=== PATIENT | female | born 1935 | race American Indian/Alaskan Native ===

== ENCOUNTER 2018-04-23 19:33 | Observation (INO) | payer MEDICARE, OTHER ==
[2018-04-23 21:16] LABS: BASO # 0.03 K/mm3 (0.0-2.0); BASO % 0.5 % (0.0-3.0); EOS # 0.6 (0.0-0.7); EOS % 10.5 % (1.5-5.0); GRAN # 2.25 (1.4-6.5); GRAN % 40.8 % (50.0-68.0); HEMOGLOBIN 9.8 g/dL (12.0-16.0); LYMPH # 2.2 (1.2-3.4); LYMPH % 39.9 % (22.0-35.0); MEAN CELL VOLUME 88.8 fl (80.0-105.0); MEAN CORPUSCULAR HEMOGLOBIN 28.9 pg (25.0-35.0); MEAN CORPUSCULAR HGB CONC 32.6 g/dl (31.0-37.0); MEAN PLATELET VOLUME 9.8 fl (7.0-11.0); MONO # 0.5 (0.1-0.6); MONO % 8.3 % (1.0-6.0); RBC 3.39 10^6/uL (3.5-6.1); RED CELL DISTRIBUTION WIDTH 13.8 % (11.5-14.5); WHITE BLOOD COUNT 5.5 10^3/ul (4.5-11.0)
[2018-04-23 21:26] LABS: ALB/GLOB RATIO 1.1 (1.1-1.8); ALBUMIN 3.8 g/dL (3.0-4.8); ALT/SGPT 15 U/L (7-56); AST/SGOT 19 U/L (14-36); BLOOD UREA NITROGEN 19 mg/dL (7-21); CALCIUM 9.5 mg/dL (8.4-10.5); GFR AFRICAN-AMERICAN > 60; GFR NON-AFRICAN AMERICAN > 60; HDL CHOLESTEROL 54 mg/dL (29-60)
[2018-04-23 21:37] LABS: LDL CHOLESTEROL 61 mg/dL (0-129)
[2018-04-23 21:38] LABS: INR 1.12 (0.93-1.08); PARTIAL THROMBOPLASTIN TIME 24.8 Seconds (25.1-36.5); PROTHROMBIN TIME 12.8 SECONDS (9.4-12.5)
[2018-04-23 21:39] LABS: TROPONIN I < 0.01 ng/mL
--- NOTE | 2018-04-23 22:05 | ED PDOC ---
Arrival/HPI - General Chief Complaint: Trauma Time Seen by Provider: 04/23/18 20:01 Historian: Patient - History of Present Illness Narrative History of Present Illness (Text): 04/23/18 20:30 Derick Austin is an 82 year old female, whose past medical history includes hypertension, dementia, CVA with residual left-sided weakness, and degenerative joint disease, who presents to the Emergency department brought in by EMS for frequent falls since yesterday and worsening confusion. Limited HPI and ROS secondary to patient's dementia. PMD: Dr. Banks Symptom Onset: Gradual Symptom Course: Unchanged Activities at Onset: Light Context: Home Past Medical History - Provider Review Nursing Documentation Reviewed: Yes - Infectious Disease Hx of Infectious Diseases: None - Cardiac Hx Cardiac Disorders: Yes Hx Hypertension: Yes - Pulmonary Hx Respiratory Disorders: No - Neurological Hx Neurological Disorder: Yes Hx Dementia: Yes - HEENT Hx HEENT Disorder: No - Renal Hx Renal Disorder: No - Endocrine/Metabolic Hx Endocrine Disorders: No - Hematological/Oncological Hx Blood Disorders: No - Integumentary Hx Dermatological Disorder: No - Musculoskeletal/Rheumatological Hx Musculoskeletal Disorders: Yes Hx Arthritis: Yes - Gastrointestinal Hx Gastrointestinal Disorders: Yes Hx Gall Bladder Disease: Yes - Genitourinary/Gynecological Hx Genitourinary Disorders: No - Psychiatric Hx Psychophysiologic Disorder: No Hx Substance Use: No - Surgical History Hx Orthopedic Surgery: Yes (L Hip Replacement) Other/Comment: left hip surgery. - Anesthesia Hx Anesthesia: Yes Hx Anesthesia Reactions: No Hx Malignant Hyperthermia: No - Suicidal Assessment Feels Threatened In Home Enviroment: No Family/Social History - Physician Review Nursing Documentation Reviewed: Yes Family/Social History: Unknown Family HX Smoking Status: Never Smoked Hx Alcohol Use: No Hx Substance Use: No Allergies/Home Meds Allergies/Adverse Reactions: Allergies No Known Allergies Allergy (Verified 04/23/18 20:01) Home Medications: Home Meds Medication Instructions Recorded Confirmed Donepezil 10 mg PO DAILY 12/08/16 04/23/18 Meloxicam 15 mg PO DAILY 12/08/16 04/23/18 Tylenol/Codeine 300 MG/30 MG 300 mg PO BID 12/08/16 04/23/18 Review of Systems - Review of Systems Systems not reviewed;Unavailable: Dementia Neurological: Other (+frequent falls, +confusion) Physical Exam Vital Signs Reviewed: Yes Vital Signs Temp Pulse Resp BP Pulse Ox 04/24/18 02:34 62 12 168/94 H 98 04/24/18 01:20 206/107 H 04/23/18 23:54 55 L 18 181/96 H 100 04/23/18 21:03 54 L 16 147/96 H 99 04/23/18 20:03 97.8 F 62 20 153/84 H 100 Temperature: Afebrile Blood Pressure: Hypertensive Pulse: Regular Respiratory Rate: Normal Appearance: Positive for: Non-Toxic Mental Status: Positive for: Confused Finger Stick Blood Glucose: 71 - Systems Exam Head: Present: Atraumatic, Normocephalic Pupils: Present: PERRL Extroacular Muscles: Present: EOMI Conjunctiva: Present: Normal Mouth: Present: Moist Mucous Membranes Neck: Present: Normal Range of Motion Respiratory/Chest: Present: Clear to Auscultation, Good Air Exchange. No: Respiratory Distress, Accessory Muscle Use Cardiovascular: Present: Regular Rate and Rhythm, Normal S1, S2. No: Murmurs Abdomen: No: Tenderness, Distention, Peritoneal Signs Upper Extremity: No: Cyanosis, Edema Lower Extremity: Present: Other (Bilateral lower extremity weakness). No: Edema Neurological: Present: Motor Func Grossly Intact, Other (Right-sided nasal/ labial flattening) Skin: Present: Warm, Dry, Normal Color. No: Rashes Medical Decision Making ED Course and Treatment: 04/23/18 20:30 Impression: 82 year old female brought in for frequent falls and worsening confusion. Plan: -- CT Head w/o contrast -- EKG -- Chest X-Ray -- Labs, troponin, lipid panel -- Reassess and disposition Prior Visits: Notes and results from previous visits were reviewed. On 12/08/2016, pt was seen in the Emergency department for increased weakness, decreased appetite, and fatigue. Pt was admitted to the hospital for furthe evaluation. Progress Notes: Reviewed EKG, sinus bradycardia at 53 bpm. LVH. Non-specific ST/T wave changes. 04/23/18 22:[address] Lea, who is aware and agrees with plan. Accepts pt in to her service. 04/13/18 22:15 Reviewed radiology, CT Head shows: Brain: See below. Ventricles: There is moderate ventriculomegaly and cortical sulci widening consistent with generalized atrophy. There are areas of diminished density in the periventricular white matter bilaterally consistent with chronic small vessel ischemic changes. Albarran-white matter differentiation is intact and unremarkable. No evidence of acute intracranial bleed. Bones/joints: Unremarkable. No acute fracture. Soft tissues: Unremarkable. Sinuses: Unremarkable as visualized. No acute sinusitis. Mastoid air cells: Unremarkable as visualized. No mastoid effusion. IMPRESSION: Generalized atrophy and chronic small vessel ischemic changes. 04/24/18 00:53 Reviewed radiology, Chest X-ray shows no acute processes. XR Pelvis shows no acute processes/no acute fracture. 04/24/18 00:[address] scan findings with pt with Dr. Lea. Pt will go to Telemetry observation for altered mental status under her service. - Lab Interpretations Lab Results: 04/23/18 21:00 04/23/18 21:00 Lab Results 04/23/18 21:18: PT 12.8 H, INR 1.12 H, APTT 24.8 L 04/23/18 21:00: Hemoglobin A1c 5.1 04/23/18 21:00: Sodium 144, Potassium 4.3, Chloride 106, Carbon Dioxide 27, Anion Gap 15, BUN 19, Creatinine 0.9, Est GFR ( Amer) > 60, Est GFR (Non- Af Amer) > 60, Random Glucose 92, Calcium 9.5, Total Bilirubin 0.8, AST 19, ALT 15, Alkaline Phosphatase 70, Troponin I < 0.01, Total Protein 7.2, Albumin 3.8, Globulin 3.4, Albumin/Globulin Ratio 1.1, Triglycerides 60, Cholesterol 138, LDL Cholesterol Direct 61, HDL Cholesterol 54 04/23/18 21:00: WBC 5.5, RBC 3.39 L, Hgb 9.8 L, Hct 30.1 L, MCV 88.8, MCH 28.9, MCHC 32.6, RDW 13.8, Plt Count 255, MPV 9.8, Gran % 40.8 L, Lymph % (Auto) 39.9 H, [place] % (Auto) 8.3 H, Eos % (Auto) 10.5 H, Baso % (Auto) 0.5, Gran # 2.25, Lymph # (Auto) 2.2, [place] # (Auto) 0.5, Eos # (Auto) 0.6, Baso # (Auto) 0.03 04/23/18 20:46: POC Glucose (mg/dL) 71 I have reviewed the lab results: Yes - RAD Interpretation Radiology Orders: 04/23/18 20:32 CHEST PORTABLE [RAD] Stat 04/23/18 20:38 HEAD W/O CONTRAST [CT] Stat 04/23/18 23:01 PELVIS W/OBLIQUES (3VWS) [RAD] Stat Offender Employment Specialist: ED Physician, Radiologist - EKG Interpretation Interpreted by ED Physician: Yes Type: 12 lead EKG - Medication Orders Current Medication Orders: Acetaminophen (Tylenol 325mg Tab) 650 mg PO Q6H PRN PRN Reason: Fever >100.4 F Donepezil HCl (Aricept) 5 mg PO HS CASSIDY Meloxicam (Mobic) 15 mg PO DAILY CASSIDY Last Admin: 04/24/18 11:53 Dose: 15 mg Tramadol/Acetaminophen (Ultracet 37.5/325 Mg) 1 tab PO Q6H PRN PRN Reason: Pain, moderate (4-7) Discontinued Medications Acetaminophen (Tylenol 325mg Tab) 650 mg PO STAT STA Stop: 04/24/18 01:06 Last Admin: 04/24/18 01:15 Dose: Hydralazine HCl (Apresoline) 10 mg IVP ONCE ONE Stop: 04/24/18 01:07 Last Admin: 04/24/18 01:20 Dose: 10 mg IVP Administration Document 04/24/18 01:20 CNR (Rec: 04/24/18 01:20 CNR [id number]) Charges for Administration # of IVP Administrations 1 JAN Pulse and Blood Pressure Document 04/24/18 01:20 CNR (Rec: 04/24/18 01:20 CNR [id number]) Blood Pressure Blood Pressure (100/60-150/90) 206/107 Ketorolac Tromethamine (Toradol) 15 mg IVP STAT STA Stop: 04/24/18 01:09 Last Admin: 04/24/18 01:20 Dose: 15 mg MAR Pain Assessment Document 04/24/18 01:20 CNR (Rec: 04/24/18 01:20 CNR [id number]) Pain Reassessment Is this a pain reassessment? No IVP Administration Document 04/24/18 01:20 CNR (Rec: 04/24/18 01:20 CNR [id number]) Charges for Administration # of IVP Administrations 1 NIHSS Scale (Rumely) Time Performed: 20:30 - How Severe is the Stoke Baseline Level of Consciousness: 0=Alert LOC to Questions: 0=Both comments correct LOC to commands: 0=Obeys both correctly Best Gaze: 0=Normal Visual: 0=No visual loss Facial: 1=Minor asymmetry Motor Arm - Left: 1=Drift noted before 10 sec Motor Arm - Right: 0=No drift Motor Leg - Left: 2=Falls before 5 sec Motor Leg - Right: 2=Falls before 5 sec Limb Ataxia: 0=Absent Sensory: 0=Normal Best Language: 0=No aphasia Dysarthia: 0=Normal articulation Extinction & Inattention (Neglect): 0=Normal, no object Score: 6 Risk Level: Mod Stroke Risk rTPA Inclusion/Exclusion - Refusal of Treatment Patient Refused Treatment: No - Inclusion Criteria for Altepase Patient is 18 years or Older: Yes The Clinical Diagnosis of Ischemic Stroke That is Causing a Potentially Disabling Neurological Deficit: No Time of Onset is Well Established to be Less Than 270 Minute Before Treatment Would Begin: No Risk/Benefit Discussed With Patient/Family Member Present: Yes - Exclusion Criteria for Altepase Uncontrolled Hypertension at Time of Treatment (Systolic BP above 185 or Diastolic BP above 110 mmHg): No - Warning to TPA With Conditions Condition: Stroke Serevity Too Mild - Scribe Statement The provider has reviewed the documentation as recorded by the Scribhalie Barrow Provider Scribe Attestation: All medical record entries made by the Scribe were at my direction and personally dictated by me. I have reviewed the chart and agree that the record accurately reflects my personal performance of the history, physical exam, medical decision making, and the department course for this patient. I have also personally directed, reviewed, and agree with the discharge instructions and disposition. Disposition/Present on Arrival - Present on Arrival Any Indicators Present on Arrival: No History of DVT/PE: Yes History of Uncontrolled Diabetes: No Urinary Catheter: Yes History of Decub. Ulcer: No History Surgical Site Infection Following: None - Disposition Have Diagnosis and Disposition been Completed?: Yes Diagnosis: Mental status change Disposition: HOSPITALIZED Disposition Time: 01:00 Condition: FAIR
--- NOTE | 2018-04-24 08:51 | CT ---
PROCEDURE: CT HEAD WITHOUT CONTRAST. HISTORY: weakness COMPARISON: None available. TECHNIQUE: Axial computed tomography images were obtained through the head/brain without intravenous contrast. Radiation dose: Total exam DLP = mGy-cm. This CT exam was performed using one or more of the following dose reduction techniques: Automated exposure control, adjustment of the mA and/or kV according to patient size, and/or use of iterative reconstruction technique. FINDINGS: HEMORRHAGE: No intracranial hemorrhage. BRAIN: No mass effect or edema. Hydrocephalus and chronic white matter disease.. VENTRICLES: Hydrocephalus and chronic white matter disease.. CALVARIUM: Unremarkable. PARANASAL SINUSES: Unremarkable as visualized. No significant inflammatory changes. MASTOID AIR CELLS: Unremarkable as visualized. No inflammatory changes. OTHER FINDINGS: None. IMPRESSION: No bleed.
--- NOTE | 2018-04-24 09:23 | RAD ---
HISTORY: Code Stroke COMPARISON: 08/10/2016 FINDINGS: LUNGS: No active pulmonary disease. PLEURA: No significant pleural effusion identified, no pneumothorax apparent. CARDIOVASCULAR: Mild cardiomegaly OSSEOUS STRUCTURES: No significant abnormalities. VISUALIZED UPPER ABDOMEN: Normal. OTHER FINDINGS: None. IMPRESSION: No active disease.
--- NOTE | 2018-04-24 09:36 | CARD ---
APPROVED REPORT EKG Measurement Heart [id number] MD [id number]-8 [id number] <Conclusion> Sinus bradycardia Minimal voltage criteria for LVH, may be normal variant Borderline ECG
--- NOTE | 2018-04-24 10:28 | RAD ---
PROCEDURE: Pelvis three views HISTORY: fall COMPARISON: TECHNIQUE: Three views of the pelvis were obtained. FINDINGS: There is a left hip prosthesis. There is no dislocation or loosening. Severe degenerative changes are seen in the right hip with joint space narrowing as well as bony sclerosis and osteophyte formation IMPRESSION: No acute fracture
[2018-04-24] MEDS ORDERED: TraMADol/Apap 37.5/325 mg Tab PO PRN (17:48)
--- NOTE | 2018-04-25 04:06 | HP ---
HISTORY OF PRESENT ILLNESS: Patient is 82 years old, unable to give history. She is not able to give history because of her advanced dementia. Her granddaughter who is by the bedside states that she has fallen off bed a few times when she tried to get up, although she has been bed bound for almost 2 to 3 years. Granddaughter states she has no help because she has to work and nobody watches her in between and she has been increasingly weak and increasingly demented. According to her, she has been eating well. No history of nausea or vomiting. She has increasing generalized weakness and increasing forgetfulness. PAST MEDICAL HISTORY: Significant for hypertension and dementia, generalized osteoarthritis. ALLERGIES: SHE IS NOT ALLERGIC TO ANY MEDICATIONS. MEDICATIONS AT HOME: She is on Mobic 15 mg daily. She is on Ultracet. She is on Aricept 10 mg daily. SOCIAL HISTORY: She lives with her son and really granddaughter takes care of her. No history of smoking, drinking, or alcohol use. REVIEW OF SYSTEMS: Awake and alert, but confused, disoriented, not communicative, cannot carry conversation with her. PHYSICAL EXAMINATION: VITAL SIGNS: She is afebrile, pulse 50, respirations 18, blood pressure 158/93. LUNGS: Bilateral fair airflow. No rhonchi or crackle. HEART: S1 and S2 audible. ABDOMEN: Soft. Nontender. No rebound. No guarding. NEUROLOGICAL: She is awake and alert, but confused, disoriented, not communicative. She has generalized weakness. She has bilateral knee deformity secondary to arthritis. LABORATORY EXAM: WBC is 5.5, hemoglobin 9.8, hematocrit 30.1, platelet 255. PT 12.8, INR 1.12. Chemistry: Sodium 144, potassium 4.3, chloride 106, CO2 of 27, BUN 19, creatinine 0.9. Blood sugar of 92. LFTs are within normal limits. CT scan of the brain was done negative. X-ray of the pelvis is unremarkable. ASSESSMENT: 1. Status post multiple falls. 2. Profound dementia. 3. Chronic anemia. 4. Generalized osteoarthritis. PLAN: We will try to assess from physical therapy point of view. She might need longterm placement because she is at high risk and does not have full support. Patient needs 24-hour care and supervision. We will get doctors, social service, and make disposition plan. Rosey Lea MD [facility] # [id number]
[2018-04-26 05:58] VITALS: RESP 20; O2SAT 98
--- NOTE | 2018-04-26 10:23 | DS ---
HISTORY OF PRESENT ILLNESS: Patient is 82-year-old, seems to be confused, disoriented, answers simple questions, agitated and distressed, was evaluated by physical therapy, recommended subacute rehab. According to patient's granddaughter, she has never walked for last 2 years. PHYSICAL EXAMINATION: GENERAL: She is awake and alert, not very communicative. VITAL SIGNS: She is afebrile, pulse 63, respirations 18, blood pressure 156/75. LUNGS: Bilateral fair airflow. No rhonchi or crackle. HEART: S1 and S2 audible. ABDOMEN: Soft, nontender. No rebound, no guarding. NEUROLOGICAL: She is awake and alert, unable to carry on conversation. EXTREMITIES: Bilateral legs, no edema. LABORATORY DATA: Blood sugar is 71. ASSESSMENT AND PLAN: 1. Recurrent fall because of unstable gait. 2. Hypertension. 3. Severe dementia. 4. Deconditioning and difficulty walking. PLAN: We will continue patient on current medication. She is on Mobic. She is on Aricept. We will give her a dose of Norvasc, and patient needs subacute rehab, but since patient did not walk for last 2 years, she might not be a candidate for subacute rehab. She is basically bed-bound and wheelchair-bound. Spoke to social workers; they are making arrangement for possible subacute rehab; if she is accepted, she will be discharged to subacute rehab; otherwise, she will be discharged home. Rosey Lea MD
[2018-04-26 11:50] VITALS: BP 138/78; PULSE 60; TEMP 99.4
--- NOTE | 2018-04-26 13:03 | DS ---
HISTORY OF PRESENT ILLNESS: The patient is 82 years old, who was admitted because of altered mental status. According to granddaughter, she has not walked for almost 2 years. She fell a couple of times from the bed and she was trying to get out of bed. However, no fever, no chills. No nausea, vomiting. No diarrhea. Eating and tolerating. PHYSICAL EXAMINATION: VITAL SIGNS: She is afebrile, pulse , respirations 20, blood pressure 138/78. LUNGS: Bilateral good airflow. No rhonchi or crackle. HEART: S1 and S2 audible. ABDOMEN: Soft. Nontender. No rebound. No guarding. NEUROLOGICAL: The patient is awake and alert, confused, disoriented. ASSESSMENT: 1. Altered mental status, seems to be back to her baseline. 2. Hypertension. 3. Dementia. 4. Deconditioning and difficulty walking. PLAN: The patient is being discharged to [facility]. We will resume her medication. Continue on current medication. Once she is discharged from there, she will be followed up by her PMD. Rosey Lea MD
== END 2018-04-26 19:33 | disposition home or self-care (01) ==
LOC: ED 19:33 → ERH 04-24 01:16 → 2RSO 04-24 03:55
PROVIDERS: ADMIT Internal Medicine; ATTEND Internal Medicine
DX: R41.82 Altered mental status, unspecified (principal); F03.90 Unspecified dementia, unspecified severity, without behavioral disturbance, psychotic disturbance, mood disturbance, and anxiety; I10 Essential (primary) hypertension; R26.2 Difficulty in walking, not elsewhere classified; M15.9 Polyosteoarthritis, unspecified; D64.9 Anemia, unspecified; I69.354 Hemiplegia and hemiparesis following cerebral infarction affecting left non-dominant side; R29.6 Repeated falls; Z96.642 Presence of left artificial hip joint; Z99.3 Dependence on wheelchair
CPT/HCPCS: 70450; 71045; 72190; 80053; 80061; 82948; 83036; 84484; 85025; 85610; 85730; 92610; 93005; 96374; 96375; 97161; 97530; 99285; G0378; G8978; G8979; G8996; G8997; G8998; J0360; J1885

== ENCOUNTER 2018-07-12 21:03 | Inpatient (IN) | payer MEDICARE, OTHER ==
[2018-07-12] MEDS ORDERED: Sodium Chloride 0.9% 500 ML IV STA (21:45)
--- NOTE | 2018-07-12 21:55 | ED PDOC ---
Arrival/HPI - General Chief Complaint: GI Problem Time Seen by Provider: 07/12/18 21:13 Historian: Patient - History of Present Illness Narrative History of Present Illness (Text): 07/12/18 21:58 82-year-old female with past medical history of rheumatoid arthritis and dementia, presents with her tile professional who is her granddaughter, for a day history of nonbloody diarrhea and bedsore to her buttock area which has been present for the past 2 weeks but the granddaughter noticed is worse today prompting ER visit. As per granddaughter she is the primary tile professional for the patient, the patient lives with her for the past 7 years, she states that the patient was diagnosed with dementia approximately 3 years ago and since then her mental and health status has declined. Patient cries intermittently without any triggers, she forgets to swallow when being fed and is mostly eating puree food now, she has limited ability to socially interact and answer questions appropriately. Patient is primarily bedbound, at times when she is able to she lifts the patient to wheelchair. Otherwise denies any fever, chills, vomiting, recent antibiotic use, cough, difficulty breathing, decrease in appetite, weakness. As per granddaughter, the patient is not complaining of any other pain aside from her chronic joint pain due to RA. PMD Juli Leo Past Medical History - Infectious Disease Hx of Infectious Diseases: None - Reproductive Menopause: Yes - Cardiac Hx Cardiac Disorders: Yes Hx Hypertension: Yes - Pulmonary Hx Respiratory Disorders: No - Neurological Hx Neurological Disorder: Yes Hx Dementia: Yes - HEENT Hx HEENT Disorder: No - Renal Hx Renal Disorder: No - Endocrine/Metabolic Hx Endocrine Disorders: No - Hematological/Oncological Hx Blood Disorders: No - Integumentary Hx Dermatological Disorder: No - Musculoskeletal/Rheumatological Hx Musculoskeletal Disorders: Yes Hx Arthritis: Yes - Gastrointestinal Hx Gastrointestinal Disorders: Yes Hx Gall Bladder Disease: Yes - Genitourinary/Gynecological Hx Genitourinary Disorders: No - Psychiatric Hx Psychophysiologic Disorder: No Hx Substance Use: No - Surgical History Hx Orthopedic Surgery: Yes (L Hip Replacement) Other/Comment: left hip surgery. - Anesthesia Hx Anesthesia: Yes Hx Anesthesia Reactions: No Hx Malignant Hyperthermia: No - Suicidal Assessment Feels Threatened In Home Enviroment: No Family/Social History Family/Social History: No Known Family HX Smoking Status: Never Smoked Hx Alcohol Use: No Hx Substance Use: No Allergies/Home Meds Allergies/Adverse Reactions: Allergies No Known Allergies Allergy (Verified 04/23/18 20:01) Home Medications: Home Meds Medication Instructions Recorded Confirmed Acetaminophen/Codeine 1 tab PO QID PRN 07/13/18 07/13/18 [Tylenol/Codeine 300 MG/30 MG] Atorvastatin [Lipitor] 10 mg PO HS 07/13/18 07/13/18 Meloxicam [Mobic] 15 mg PO DAILY 07/13/18 07/13/18 Review of Systems - Review of Systems Constitutional: Fatigue. absent: Fevers Respiratory: absent: Cough, Sputum Cardiovascular: absent: Edema Gastrointestinal: Diarrhea. absent: Vomiting Musculoskeletal: Arthralgias. absent: Joint Swelling Skin: Skin Lesions. absent: Rash Neurological: absent: Focal Weakness Physical Exam Vital Signs Temp Pulse Resp BP Pulse Ox 07/13/18 01:18 65 18 144/79 99 07/12/18 21:28 98.7 F 60 18 143/76 96 Temperature: Afebrile Blood Pressure: Normal Pulse: Regular Respiratory Rate: Normal Appearance: Positive for: Well-Appearing, Non-Toxic, Comfortable Pain Distress: None Mental Status: Positive for: Alert and Oriented X 3 - Systems Exam Head: Present: Atraumatic, Normocephalic Pupils: Present: PERRL Extroacular Muscles: Present: EOMI Conjunctiva: Present: Normal Mouth: Present: Dry Neck: Present: Normal Range of Motion. No: MIDLINE TENDERNESS Respiratory/Chest: Present: Clear to Auscultation, Good Air Exchange. No: Respiratory Distress, Accessory Muscle Use, Wheezes, Rales, Rhonchi, Tachypneic Cardiovascular: Present: Regular Rate and Rhythm, Normal S1, S2. No: Murmurs, Tachycardic Abdomen: No: Tenderness, Distention, Peritoneal Signs Back: Present: Normal Inspection Upper Extremity: Present: Normal Inspection, NORMAL PULSES. No: Cyanosis, Edema Lower Extremity: Present: Normal Inspection, NORMAL PULSES. No: Edema Neurological: Present: GCS=15, CN II-XII Intact, Speech Normal Skin: Present: Warm, Dry, Normal Color, Other (4 cm stage 3 decubitus ulcer to the sacrum without surrounding erythema, edema, discharge; +3-4 small (measuring ~2cm each) swallow ulcers to the buttock without erythema, edema, discharge). No: Rashes Psychiatric: Present: Alert, Other (oriented to self only) Medical Decision Making ED Course and Treatment: 07/12/18 21:51 Plan : -- Labs -- IV fluids -- Urinalysis -- EKG -- CXR -- Reassess and disposition -- Wound culture -- Stool C. difficile, occult blood, culture and fecal leukocytes EKG: NSR at 66 bpm, (-) acute ST changes, as read by PAYTON. CXR : NAD, as read by PA Labs reviewed wbc 7, hemoglobin 9 which is stable compared to prior blood work since [address] Lea, agrees with plan for admission and AM consult with manager social responsibility and Gen. surgery for decubitus ulcer. Diagnostic results discussed with the granddaughter she agrees with plan for admission. - Lab Interpretations Microbiology Results: Microbiology Results 07/13/18 00:30 Buttock Gram Stain - Final 07/13/18 00:30 Stool C. difficile Antigen & Toxin A,B (M - Final Lab Results: 07/12/18 23:00 07/12/18 23:00 Lab Results 07/13/18 00:30: Stool Leukocytes, Qual Negative 07/12/18 23:00: Sodium 142, Potassium 4.1, Chloride 106, Carbon Dioxide 28, Anion Gap 13, BUN 24 H, Creatinine 0.7, Est GFR ( Amer) > 60, Est GFR ( Non-Af Amer) > 60, Random Glucose 93, Calcium 9.3, Magnesium 2.3 H, Total Bilirubin 1.0, AST 46 H D, ALT 17, Alkaline Phosphatase 77, Total Protein 7.6, Albumin 3.6, Globulin 4.0, Albumin/Globulin Ratio 0.9 L, Lipase 103 07/12/18 23:00: WBC 7.4 D, RBC 3.30 L, Hgb 9.0 L, Hct 28.8 L, MCV 87.3, MCH 27.3, MCHC 31.3, RDW 13.8, Plt Count 340, MPV 10.0, Gran % 72.9 H, Lymph % (Auto ) 19.2 L, Wilcox % (Auto) 4.9, Eos % (Auto) 2.7, Baso % (Auto) 0.3, Gran # 5.41, Lymph # (Auto) 1.4, Wilcox # (Auto) 0.4, Eos # (Auto) 0.2, Baso # (Auto) 0.02 07/12/18 15:59: Urine Color Yellow, Urine Appearance Clear, Urine pH 6.0, Ur Specific [place] 1.025, Urine Protein 30 H, Urine Glucose (UA) Negative, Urine Ketones Negative, Urine Blood Trace-intact H, Urine Nitrate Positive H, Urine Bilirubin Negative, Urine Urobilinogen 1.0 H, Ur Leukocyte Esterase Small H, Urine RBC 0 - 2, Urine WBC 2 - 5, Ur Epithelial Cells 1 - 3, Urine Bacteria Many - RAD Interpretation Radiology Orders: 07/12/18 21:49 CHEST PORTABLE [RAD] Stat - Medication Orders Current Medication Orders: Atorvastatin Calcium (Lipitor) 10 mg PO HS CASSIDY Ceftriaxone Sodium (Rocephin 1 Gram Ivpb) 1 gm in 100 mls @ 100 mls/hr IVPB DAILY CASSIDY PRN Reason: Protocol Meloxicam (Mobic) 15 mg PO DAILY CASSIDY Last Admin: 07/13/18 13:20 Dose: 15 mg Oxycodone/Acetaminophen (Percocet 5/325 Mg Tab) 1 tab PO Q6H PRN PRN Reason: Pain, moderate (4-7) Stop: 07/16/18 08:43 Last Admin: 07/13/18 08:59 Dose: 1 tab MAR Pain Assessment Document 07/13/18 08:59 DL (Rec: 07/13/18 08:59 DL [id number]) Pain Reassessment Is this a pain reassessment? No Presence of Pain Presence of Pain Yes Location Pain Location Body Site Generalized Discontinued Medications Sodium Chloride (Sodium Chloride 0.9%) 500 mls @ 500 mls/hr IV .Q1H STA Stop: 07/12/18 22:44 Last Admin: 07/12/18 22:42 Dose: 500 mls/hr eMAR Start Stop Document 07/12/18 22:42 RD (Rec: 07/12/18 22:42 RD [id number]) Intravenous Solution Start Date 07/12/18 Start Time 22:42 End Date 07/12/18 End time 23:42 Total Infusion Time 60 Ceftriaxone Sodium (Rocephin 1 Gram Ivpb) 1 gm in 100 mls @ 100 mls/hr IVPB STAT STA PRN Reason: Protocol Stop: 07/13/18 18:09 Last Admin: 07/13/18 17:31 Dose: 100 mls/hr eMAR Start Stop Document 07/13/18 17:31 DL (Rec: 07/13/18 17:31 DL [id number]) Intravenous Solution Start Date 07/13/18 Start Time 17:31 - PA / RESIDENTIAL SALES EXECUTIVE / Resident Statement / has reviewed & agrees with the documentation as recorded. Disposition/Present on Arrival - Present on Arrival Any Indicators Present on Arrival: Yes History of DVT/PE: Yes History of Uncontrolled Diabetes: No Urinary Catheter: Yes History of Decub. Ulcer: No History Surgical Site Infection Following: None - Disposition Have Diagnosis and Disposition been Completed?: Yes Diagnosis: Diarrhea, Sacral decubitus ulcer Disposition: HOSPITALIZED Disposition Time: 00:30 Patient Plan: Admission Patient Problems: Current Active Problems Problem Status Onset Diarrhea Acute Sacral decubitus ulcer Acute Condition: STABLE
[2018-07-12 23:27] LABS: BASO # 0.02 K/mm3 (0.0-2.0); BASO % 0.3 % (0.0-3.0); EOS # 0.2 (0.0-0.7); EOS % 2.7 % (1.5-5.0); GRAN # 5.41 (1.4-6.5); GRAN % 72.9 % (50.0-68.0); LYMPH # 1.4 (1.2-3.4); LYMPH % 19.2 % (22.0-35.0); MEAN CELL VOLUME 87.3 fl (80.0-105.0); MEAN CORPUSCULAR HEMOGLOBIN 27.3 pg (25.0-35.0); MEAN CORPUSCULAR HGB CONC 31.3 g/dl (31.0-37.0); MONO # 0.4 (0.1-0.6); MONO % 4.9 % (1.0-6.0); RBC 3.3 10^6/uL (3.5-6.1); RED CELL DISTRIBUTION WIDTH 13.8 % (11.5-14.5); WHITE BLOOD COUNT 7.4 10^3/ul (4.5-11.0)
[2018-07-12 23:28] LABS: ALB/GLOB RATIO 0.9 (1.1-1.8); ALBUMIN 3.6 g/dL (3.0-4.8); ALT/SGPT 17 U/L (7-56); AST/SGOT 46 U/L (14-36); BLOOD UREA NITROGEN 24 mg/dL (7-21); CALCIUM 9.3 mg/dL (8.4-10.5); GFR NON-AFRICAN AMERICAN > 60; LIPASE 103 U/L (23-300)
--- NOTE | 2018-07-13 02:36 | CP.PCM.CON ---
<Alena Zuñiga - Last Filed: 07/13/18 08:58> History of Present Illness - History of Present Illness History of Present Illness: General Surgery Dr. Smith Pt demented, poor historian. History taken from EMR. 82 y/o F w/ PMHx of HTN, dementia, DVT/PE was BIBA from home for diarrhea and wounds to b/l buttock. Grand-daughter serves and assistant professor of archaeology. Per grand-daughter, pt has had NBNB diarrhea x1day and bedsore to pt buttock x2wks but worsened [employer] , prompting ER visit. denies fever, chills, vomiting, recent antibiotic use. As per granddaughter, the pt is not complaining of any other pain aside from her chronic joint pain due to RA. Surgery consulted for evaluation of decubitus ulcers. PMHx: see above, RA, GERD, cholelithiasis Meds: reviewed in chart NKDA PSHx: L THR, CAT; incisional hernia repair SHx: denies tobacco, EtOH, drug use FHx: noncontributory Review of Systems - Review of Systems Systems not reviewed;Unavailable: Dementia Past Patient History - Infectious Disease Hx of Infectious Diseases: None - Past Medical History & Family History Past Medical History?: Yes - Past Social History Smoking Status: Never Smoked - CARDIAC Hx Cardiac Disorders: Yes Hx Hypertension: Yes - PULMONARY Hx Respiratory Disorders: No - NEUROLOGICAL Hx Neurological Disorder: Yes Hx Dementia: Yes - HEENT Hx HEENT Problems: No - RENAL Hx Chronic Kidney Disease: No - ENDOCRINE/METABOLIC Hx Endocrine Disorders: No - HEMATOLOGICAL/ONCOLOGICAL Hx Blood Disorders: No - INTEGUMENTARY Hx Dermatological Problems: No - MUSCULOSKELETAL/RHEUMATOLOGICAL Hx Musculoskeletal Disorders: Yes Hx Arthritis: Yes - GASTROINTESTINAL Hx Gastrointestinal Disorders: Yes Hx Gall Bladder Disease: Yes - GENITOURINARY/GYNECOLOGICAL Hx Genitourinary Disorders: No - PSYCHIATRIC Hx Psychophysiologic Disorder: No Hx Substance Use: No - SURGICAL HISTORY Hx Orthopedic Surgery: Yes (L Hip Replacement) Other/Comment: left hip surgery. - ANESTHESIA Hx Anesthesia: Yes Hx Anesthesia Reactions: No Hx Malignant Hyperthermia: No Meds Allergies/Adverse Reactions: Allergies Allergy/AdvReac Type Severity Reaction Status Date / Time No Known Allergies Allergy Verified 04/23/18 20:01 Physical Exam - Constitutional Appears: Non-toxic, Cachectic, Chronically Ill - Head Exam Head Exam: NORMAL INSPECTION - Eye Exam Eye Exam: Normal appearance - ENT Exam ENT Exam: Mucous Membranes Moist - Respiratory Exam Respiratory Exam: NORMAL BREATHING PATTERN. absent: Accessory Muscle Use, Respiratory Distress - Cardiovascular Exam Cardiovascular Exam: absent: Bradycardia, Tachycardia - GI/Abdominal Exam GI & Abdominal Exam: Soft. absent: Distended, Tenderness - Extremities Exam Extremities exam: Positive for: normal inspection - Back Exam Additional comments: stage 1 gluteal pressure ulcers B/L w/ skin abrasion stage 1 sacral ulcer w/ skin abrasion no induration, erythema, drainage. - Neurological Exam Neurological exam: Alert, Oriented x3 - Psychiatric Exam Psychiatric exam: Normal Affect, Normal Mood - Skin Skin Exam: Dry, Normal Color, Warm Results - Vital Signs Recent Vital Signs: Last Vital Signs Temp 98.7 F 07/12/18 21:28 Pulse 65 07/13/18 01:18 Resp 18 07/13/18 01:18 BP 144/79 07/13/18 01:18 Pulse Ox 99 07/13/18 01:18 - Labs Result Diagrams: 07/12/18 23:00 07/12/18 23:00 Assessment & Plan - Assessment and Plan (Free Text) Assessment: 82 y/o F w/ sacral decubitus ulcer - off-loading - Q2 turning - air mattress - appy optifoam dressing to b/l gluteus and sacrum - keep area clean and dry - pure wick vs pearson for incontinence Pt discussed w/ Dr. Luis Zuñiga DO PGY3 <Bladimir Smith - Last Filed: 07/13/18 09:55> Meds - Medications Medications: Current Medications Oxycodone/Acetaminophen (Percocet 5/325 Mg Tab) 1 tab PO Q6H PRN PRN Reason: Pain, moderate (4-7) Stop: 07/16/18 08:43 Last Admin: 07/13/18 08:59 Dose: 1 tab Results - Vital Signs Recent Vital Signs: Last Vital Signs Temp 98 F 07/13/18 08:03 Pulse 73 07/13/18 08:03 Resp 16 07/13/18 08:03 BP 159/86 H 07/13/18 08:03 Pulse Ox 98 07/13/18 08:03 - Labs Result Diagrams: 07/12/18 23:00 07/12/18 23:00 Assessment & Plan - Assessment and Plan (Free Text) Assessment: NGT should be 100 mm Hg continuous
[2018-07-13 03:53] VITALS: BMI 22.8
[2018-07-13] MEDS: Oxycodone/Acetaminophen 5/325 mg Tab PO PRN ×2 (08:59→22:30)
--- NOTE | 2018-07-13 11:17 | RAD ---
Date of service: 07/12/2018 HISTORY: weak COMPARISON: Portable chest 04/23/2018. FINDINGS: LUNGS: No active pulmonary disease. PLEURA: No significant pleural effusion identified, no pneumothorax apparent. CARDIOVASCULAR: Stable cardiomegaly. No pulmonary vascular congestion. OSSEOUS STRUCTURES: No significant abnormalities. VISUALIZED UPPER ABDOMEN: Normal. OTHER FINDINGS: None. IMPRESSION: Stable cardiomegaly. No will interval acute cardiopulmonary changes.
--- NOTE | 2018-07-13 12:28 | CARD ---
APPROVED REPORT Date of service: 07/13/2018 EKG Measurement Heart [id number] [id number] <Conclusion> Normal sinus rhythm Normal ECG
[2018-07-13 16:23] LABS: URINE BILIRUBIN NEGATIVE (NEGATIVE); URINE BLOOD TRACE-INTACT (NEGATIVE); URINE GLUCOSE (UA) NEGATIVE (NEGATIVE); URINE LEUKOCYTE ESTERASE SMALL Leu/uL (NEGATIVE); URINE PROTEIN 30 mg/dL (<30 mg/dL)
[2018-07-13 16:26] LABS: URINE APPEARANCE CLEAR (CLEAR); URINE COLOR YELLOW (YELLOW)
[2018-07-13 16:33] LABS: URINE BACTERIA MANY (NEG); URINE RBC 0 - 2 /hpf (0-2)
[2018-07-13] MEDS ORDERED: cefTRIAXone 1 gm 1 GM/100 ML BAG IVPB STA (17:10)
[2018-07-13] MEDS: Dextrose 5%/0.45% NS 1,000 ML IV SCH (21:44)
--- NOTE | 2018-07-13 23:43 | HP ---
HISTORY OF PRESENT ILLNESS: Patient is 82 years old with Alzheimer's. She is awake and alert, but confused and disoriented. Does not answer appropriately, not oriented to time and place. We will reach up to the family, however she was brought in because of diarrhea and worsening back sores. No history of fever or chills. No history of nausea or vomiting. Granddaughter is patient's caretaker resort. Per granddaughter, she has diarrhea for last 24 hours and she has back sores there for almost 2 weeks, but they have gotten worse because of her recent diarrhea. PAST MEDICAL HISTORY: Significant for, 1. Generalized osteoarthritis. 2. Gastroesophageal reflux disease. 3. Alzheimer's. 4. History of left total hip replacement. 5. History of incisional hernia. SOCIAL HISTORY: Unremarkable. She is bed bound and has Alzheimer's. Unable to produce any history regarding that. MEDICATIONS AT HOME: She is on Mobic 15 mg daily, atorvastatin 10 mg daily, Tylenol with Codeine as needed. REVIEW OF SYSTEMS: Patient is lying in bed, does not seem to be in any distress. However when she moves, she complains of pain in the back. PHYSICAL EXAMINATION: VITAL SIGNS: She is afebrile, pulse 73, respiration 16, blood pressure 159/86. LUNGS: Bilateral fair airflow. No rhonchi or crackle. HEART: S1 and S2 audible. ABDOMEN: Soft, nontender. No rebound. No guarding. EXTREMITIES: She has a wound in her upper left buttock and she has stage II in her sacral area and right buttock. Her lower extremities are contracted. LABORATORY EXAM: WBC is 7.4, hemoglobin 9, hematocrit 28.8, platelet of 340. Chemistry: Sodium 142, potassium 4.1, chloride 106, CO2 of 28, BUN 24, creatinine 0.7. Blood sugar of 93. LFTs are within normal limits. ASSESSMENT: 1. Diarrhea, etiology unknown yet. 2. Dementia. 3. Sacral decubiti 4. Chronic anemia. 5. Deconditioning and being bed bound. PLAN: We will resume her medication. She needs local wound care. Dr. Smith has been consulted for her sacral wound care. She need to be positioned every 2 hours to relieve her back pressure. Give her analgesic as needed. We will send stool for C. diff and culture and sensitivity. We will her for better wound healing in her back and we will follow up the patient. Rosey Lea MD
[2018-07-14] MEDS: Oxycodone/Acetaminophen 5/325 mg Tab PO PRN (10:51)
[2018-07-14] MEDS: cefTRIAXone 1 gm 1 GM/100 ML BAG IVPB SCH (10:51)
[2018-07-14] MEDS: Dextrose 5%/0.45% NS 1,000 ML IV SCH (10:57)
[2018-07-14 11:46] LABS: BASO # 0.01 K/mm3 (0.0-2.0); BASO % 0.1 % (0.0-3.0); EOS # 0.5 (0.0-0.7); EOS % 6.6 % (1.5-5.0); GRAN # 4.98 (1.4-6.5); GRAN % 71.4 % (50.0-68.0); HEMOGLOBIN 9.2 g/dL (12.0-16.0); LYMPH # 1.3 (1.2-3.4); LYMPH % 17.9 % (22.0-35.0); MEAN CELL VOLUME 86.6 fl (80.0-105.0); MEAN CORPUSCULAR HEMOGLOBIN 26.7 pg (25.0-35.0); MEAN CORPUSCULAR HGB CONC 30.9 g/dl (31.0-37.0); MEAN PLATELET VOLUME 9.8 fl (7.0-11.0); MONO # 0.3 (0.1-0.6); RBC 3.44 10^6/uL (3.5-6.1); RED CELL DISTRIBUTION WIDTH 13.6 % (11.5-14.5)
[2018-07-14 12:00] LABS: BLOOD UREA NITROGEN 15 mg/dL (7-21); CALCIUM 8.9 mg/dL (8.4-10.5); GFR NON-AFRICAN AMERICAN > 60
--- NOTE | 2018-07-14 12:48 | CP.PCM.PCO ---
Physician Communication Note - Physician Communication Note Physician Communication Note: ua c/s:gR NEG ALEXIS/uLVCER c/s STOOL-rX bACTROBAN TOPICAL
--- NOTE | 2018-07-14 15:34 | PN ---
DATE: 07/14/2018 HISTORY OF PRESENT ILLNESS: Ms. Austin is an 82-year-old female with Alzheimer disease. She was admitted to the hospital with chronic diarrhea. She has chronic anemia also, has sacral decubitus ulcer. Evaluated by Dr. Smith for debridement. PAST MEDICAL HISTORY: Osteoarthritis, GE reflux, Alzheimer's, total hip replacement, incisional hernia. SOCIAL HISTORY: Unremarkable. Unable to communicate. MEDICATIONS: At home, Mobic 15 mg daily, atorvastatin 10 mg daily, Tylenol with Codeine. REVIEW OF SYSTEMS: As per HPI. Rest of 12-point review of systems reviewed, negative. PHYSICAL EXAMINATION: VITAL SIGNS: Temperature 98.7, heart rate 80 per minute, respiratory rate 16 per minute, blood pressure 159/60. HEENT: Pallor positive. NECK: No lymphadenopathy. CHEST: Air entry present, equal bilaterally. No added sounds. CARDIOVASCULAR: S1, S2 normal. No murmur. No gallop. ABDOMEN: Soft, nontender. No hepatosplenomegaly. EXTREMITIES: No edema. Sacral decubitus present, stage II on the right buttock. Lower extremities contracted. LABORATORY DATA: White count 7.4, hemoglobin 9, hematocrit 28, platelet count 340. Sodium 142, potassium 4.1, CO2 of 28, BUN 24, creatinine 0.7. ASSESSMENT: 1. Diarrhea, unknown etiology. 2. Dementia. 3. Sacral decubitus. 4. Deconditioning. 5. Chronic anemia. PLAN: She was evaluated by Dr. Smith for debridement. Lipitor 40 mg daily to continue. Currently on IV antibiotic ceftriaxone, we will continue that. ointment topical b.i.d., Mobic 15 mg daily, IV fluid at 60 mL an hour, Percocet p.r.n. for pain. Jasmin Heredia MD
[2018-07-14] MEDS: Mupirocin 2% Ointment 15 GM TUBE TOP SCH (18:48)
[2018-07-15] MEDS: Oxycodone/Acetaminophen 5/325 mg Tab PO PRN (03:52)
[2018-07-15] MEDS: cefTRIAXone 1 gm 1 GM/100 ML BAG IVPB SCH (09:40)
[2018-07-15] MEDS: Mupirocin 2% Ointment 15 GM TUBE TOP SCH (09:40)
--- NOTE | 2018-07-15 09:48 | CP.PCM.PCO ---
Physician Communication Note - Physician Communication Note Physician Communication Note: no surg intervention. appy bactroban daily to [facility] , [facility]
--- NOTE | 2018-07-15 10:39 | CP.PCM.PCO ---
Physician Communication Note - Physician Communication Note Physician Communication Note: Concur with cons rx:St II ulcer needs no surgery
--- NOTE | 2018-07-15 17:07 | PN ---
DATE: 07/15/2018 SUBJECTIVE: The patient is 82 years old, seen and examined, confused, disoriented with unpleasant space. According to nurse, did not eat that well, only eats better when family feeds her. PHYSICAL EXAMINATION VITAL SIGNS: She is afebrile, pulse 63, respiration 18, blood pressure . LUNGS: Bilateral fair airflow. No rhonchi or crackle. HEART: S1 and S2 audible. ABDOMEN: Soft, nontender. No rebound. No guarding. NEUROLOGICAL: The patient is confused, disoriented and has profound dementia. LABORATORY EXAMINATION: Her stool culture is negative. Blood culture is positive for E. coli, Serratia. Urine is positive for Gram-negative isreal. Stool for C. diff is negative. ASSESSMENT: 1. Multiple sacral decubiti. 2. Gram-negative urinary tract infection. 3. Profound dementia. 4. Hypertension. PLAN: Currently, the patient is on Rocephin. Analgesic as needed. We will discuss with social worker health services for possible long-term placement. Rosey Lea MD
[2018-07-16] MEDS: Oxycodone/Acetaminophen 5/325 mg Tab PO PRN (06:26)
[2018-07-16] MEDS: cefTRIAXone 1 gm 1 GM/100 ML BAG IVPB SCH (10:12)
[2018-07-16] MEDS: Mupirocin 2% Ointment 15 GM TUBE TOP SCH ×2 (10:13→17:12)
[2018-07-16] MEDS ORDERED: Meropenem 500 MG in Sodium Chloride 0.9% 50 ML IVPB SCH ×2 (10:45→12:45)
--- NOTE | 2018-07-16 12:51 | CP.PCM.PCO ---
Physician Communication Note - Physician Communication Note Physician Communication Note: ESBL E Coli-Rx Meropenem
--- NOTE | 2018-07-16 13:02 | PN ---
DATE: 07/16/2018 SUBJECTIVE: The patient is 82 years old, seen and examined, seemed to be much more alert. According to nurse, ate 60%. Complained of back pain. PHYSICAL EXAMINATION: VITAL SIGNS: The patient is afebrile, pulse 71, respirations 17, blood pressure 144/77. LUNGS: Bilateral good airflow. No rhonchi or crackle. HEART: S1 and S2 audible. ABDOMEN: Soft. Nontender. No rebound. No guarding. SKIN: She has sacral and buttock area wound. LABORATORY EXAM: She has wound culture positive that is growing E. coli, Serratia fonticola and her urine positive for E. coli, but ESBL positive. ASSESSMENT: 1. Sacral decubitus. 2. Dementia. 3. Extended-spectrum beta-lactamase positive Escherichia coli urinary tract infection. PLAN: We will start the patient on meropenem, get ID evaluation. Discuss with psychiatric social worker supervisor for subacute to long-term rehab. Rosey Lea MD
[2018-07-16] MEDS ORDERED: Oxycodone/Acetaminophen 5/325 mg Tab PO PRN (13:53)
--- NOTE | 2018-07-17 04:03 | CON ---
DATE: 07/16/2018 LOCATION: The patient seen in room 575, bed 1. CHIEF COMPLAINT: Positive urine culture for ESBL and positive buttocks culture for E. coli Serratia and group G strep. HISTORY OF PRESENT ILLNESS: This is an 82-year-old female with history of osteoarthritis, Alzheimer's, hypertension, cerebrovascular accident, left-sided weakness and dementia who is admitted with a diagnosis of diarrhea, bed sores and Infectious Disease consultation because of the urine culture is positive. REVIEW OF SYSTEMS: There is no fevers, no chills. She is bedridden. She is unable to give any history. She has a Diaz catheter. There has been no abdominal pain, diarrhea or constipation now and no nausea or vomiting. No chest pain is reported. PAST MEDICAL HISTORY: Significant for osteoarthritis, Alzheimer's, hypertension, cerebrovascular accident, left-sided weakness and dementia. PAST SURGICAL HISTORY: Significant for hysterectomy and a left hip replacement. ALLERGIES: THE PATIENT HAS NO KNOWN ALLERGIES. MEDICATIONS AT HOME: Include Mobic, atorvastatin and acetaminophen. PHYSICAL EXAMINATION: GENERAL: The patient is in bed in no acute distress, however she appears much older than stated age and chronically ill. VITAL SIGNS: With a temperature of 98, blood pressure is 160/100, respiratory rate of 20 and heart rate of 71. HEENT: Unremarkable. NECK: Supple. LUNGS: Have decreased breath sounds. HEART: Normal S1, S2. ABDOMEN: Soft, nontender. SKIN: Reveals a stage II decubitus ulcers. No erythema, no discharge. No evidence of infection. LABORATORY EXAMINATION: Reveals a white count of 7.4, hemoglobin of 9, platelets of 340, 72% granulocytosis. BUN of 24, creatinine of 0.7, AST is 46 and urinalysis is noted with 2 to 5 wbc's, epithelial cells and leukocyte esterase is small and many bacteria. The cultures reveal ESBL E. coli in the urine, sensitive E. coli Serratia and group G strep in the buttocks and the stool for culture and stool for C. diff is negative antigen, negative toxin and stool cultures, no Salmonella, no Shigella, no Campylobacter. ASSESSMENT AND PLAN: An 82-year-old female who is bedridden, chronically ill, debilitated, appears much older than stated age with cerebrovascular accident, left-sided weakness, dementia, hypertension, Alzheimer's, osteoarthritis, now with: 1. Extended-spectrum beta-lactamase Escherichia coli in the urine culture and sacral decubiti ulcers which is not infected, neither of these require antibiotic therapy. Would not treat with antibiotics, however, the patient is at risk of developing nosocomial infections. We will follow with you. Mariano Fontenot MD
[2018-07-17] MEDS: Mupirocin 2% Ointment 15 GM TUBE TOP SCH (10:10)
[2018-07-17 16:41] VITALS: BP 133/64; PULSE 86; RESP 20; TEMP 98.1; O2SAT 97
--- NOTE | 2018-07-17 19:02 | CP.PCM.PN ---
Subjective - Date & Time of Evaluation Date of Evaluation: 07/17/18 Time of Evaluation: 12:35 - Subjective Subjective: Comfortable, no fevers. Objective - Vital Signs/Intake and Output Vital Signs (last 24 hours): Temp Pulse Resp BP Pulse Ox 98.1 F 86 20 133/64 97 07/17/18 14:00 07/17/18 14:00 07/17/18 14:00 07/17/18 14:00 07/17/18 14:00 Intake and Output: 07/17/18 07/18/18 18:59 06:59 Intake Total 360 Output Total 400 Balance -40 - Labs Labs: 07/14/18 11:20 07/14/18 11:20 - Constitutional Appears: Chronically Ill - Head Exam Head Exam: NORMAL INSPECTION - Respiratory Exam Respiratory Exam: Decreased Breath Sounds - Cardiovascular Exam Cardiovascular Exam: +S1, +S2 - GI/Abdominal Exam GI & Abdominal Exam: Soft. absent: Tenderness Assessment and Plan - Assessment and Plan (Free Text) Plan: Assessment asymptomatic bacteriuria with ESBL E. coli in the urine non-infected sacral ulcer osteoarthritis dementia s/P hysterectomy S/P left hip replacement Plan continue to monitor clinically off antibiotics
--- NOTE | 2018-07-18 09:45 | DS ---
HISTORY OF PRESENT ILLNESS: The patient is 82 years old, who was brought in because of altered mental status and worsening of her back wounds. 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 The patient was found to have ESBL-positive E. coli UTI and she grew E. coli, Serratia and group B Streptococcus from her wound. She had wound care done, was started on IV antibiotic. Dr. Fontenot was consulted, who thinks this patient's ESBL is probably colonization. The patient started to feel better. She is awake, alert, oriented. As per PCP, she has been eating almost 75% of her food. PHYSICAL EXAMINATION: GENERAL: Today, on examination, she is more awake, alert, oriented, communicative. VITAL SIGNS: She is afebrile, pulse 86, respirations 20, blood pressure 133/64. LUNGS: Bilateral fair airflow. No rhonchi or crackle. HEART: S1 and S2 audible. ABDOMEN: Soft. Nontender. No rebound. No guarding. NEUROLOGICAL: The patient is awake and alert, somewhat forgetful, but answers simple questions. ASSESSMENT: 1. Altered mental status due to Escherichia coli urinary tract infection. 2. Decubitus ulcer. 3. Dementia. 4. Hypertension. 5. Hyperlipidemia. 6. Generalized osteoarthritis. PLAN: The patient is being discharged home. She will follow up with her PMD and local wound care will be done. Visiting nurses will be arranged. There is no need for antibiotic as per ID and she only needs wound care. Rosey Lea MD
== END 2018-07-17 18:37 | disposition home health service (06) | DRG 592 ==
LOC: ED 21:03 → ERH 07-13 00:37 → 5RSO 07-13 02:02
PROVIDERS: ADMIT Internal Medicine; ATTEND Internal Medicine
DX: L89.153 Pressure ulcer of sacral region, stage 3 (principal); N39.0 Urinary tract infection, site not specified; I69.354 Hemiplegia and hemiparesis following cerebral infarction affecting left non-dominant side; R64 Cachexia; K52.9 Noninfective gastroenteritis and colitis, unspecified; I10 Essential (primary) hypertension; G30.9 Alzheimer's disease, unspecified; F02.80 Dementia in other diseases classified elsewhere, unspecified severity, without behavioral disturbance, psychotic disturbance, mood disturbance, and anxiety; L89.312 Pressure ulcer of right buttock, stage 2; M06.9 Rheumatoid arthritis, unspecified; D64.9 Anemia, unspecified; G89.29 Other chronic pain; K21.9 Gastro-esophageal reflux disease without esophagitis; M15.9 Polyosteoarthritis, unspecified; B96.20 Unspecified Escherichia coli [E. coli] as the cause of diseases classified elsewhere; Z16.12 Extended spectrum beta lactamase (ESBL) resistance; B95.4 Other streptococcus as the cause of diseases classified elsewhere; Z96.642 Presence of left artificial hip joint; Z99.3 Dependence on wheelchair; Z74.01 Bed confinement status; Z79.1 Long term (current) use of non-steroidal anti-inflammatories (NSAID); Z68.22 Body mass index [BMI] 22.0-22.9, adult